=== PATIENT | female | born 1985 | race Caucasian/White ===

== ENCOUNTER 2016-12-30 16:44 | Emergency (ER) | payer MEDICAID ==
[~2016-12-30] VITALS: Ht 162.6 cm; Wt 70.8 kg
[~2016-12-30 16:44] MED LIST: AUGMENTIN 875-1 EACH PO
--- NOTE | 2016-12-30 17:38 | [facility]gent Treatment Center Report ---
History of Present Issue Date/Time Seen by Provider 12/30/16 2704 Visit Reason Pt arrived:Walked Presenting Problem:PT STATES YESTERDAY SHE BEGAN TO HAVE BODY ACHES, COUGH AND HER THROAT WAS RAW. STATES SYMPTOMS CONTINUE TO DAY. Location if Accident: Onset of symptoms date/time:12/29/16/ or onset unknown for:MEDICAL HX UNKNOWN Have you (or family members/close friends) recently traveled outside the [place]? N If Yes, where/when: Have you had exposure to infectious disease within the past month? TB? Other? Specify: c/o body aches, raspy voice and cough starting last night. Still present today. Denies sore throat "just raspy and scratchy feeling". No fever, SOA, wheezing. Hasn't taken or tried anything for symptoms. Spouse w/ strep last week "but doesn't feel like that". Source patient Exam Limitations no limitations ALLERGIES Coded Allergies: No Known Allergies (10/19/15) History Medical History General CAD? No Angina: No PA: No Hypertension? Yes Hyperlipidemia? No CHF? No DVT? No PE? No COPD? No Asthma? No Anemia? No GERD? No Gastric ulcers? No GI Bleed? No Hernia? No Thyroid Problems? No Hypothyroidism? No CVA? No Seizures? No Diabetes? No Renal Insuffiency? No UTI? No Stones? No BPH? No GB Disease: No Nephritic Syndrome? No Asplenia? No Hepatitis? No Sickle Cell Disease? No Arthritis? No Migraines? No Cataracts? No Glaucoma? No MRSA? No HIV? No TB? No Anxiety? No Depression? No Cancer? No More? No Immunization HX DT/Tetanus Unknown Surgical Hx Previous Surgery?Y tubal ligation gallblader laser surgery on cervix [employer] Hx LMP 1-6 Days Ago Social History Smoking Hx Smoker: Current Every Day Smoker Tobacco: Yes Type Cigarettes Alcohol Alcohol: No Review of Systems All Other Systems Reviewed and Negative Constitutional see HPI Eyes denies drainage ENT denies: ear pain, nose discharge, nose congestion, throat swelling. Respiratory see HPI Gastrointestinal denies no symptoms reported Skin denies rash Psychiatric/Neurological denies headache Physical Exam Vital Signs Vital Signs Date Time Temp Pulse Resp B/P Pulse O2 O2 Flow FiO2 Ox Delivery Rate 12/30 1653 98.8 95 20 146/97 99 General Appearance normal appearance, no apparent distress Eye Exam - bilateral eye normal exam Ear, Nose, Throat normal ENT inspection (x/ cobblestoning) Neck non-tender, supple Respiratory Status Yes: trachea midline, chest symmetrical, non productive cough. No: respiratory distress. Lung Sounds anterior: lungs clear. posterior: lungs clear. bilateral: lungs clear. Cardiovascular regular rate/rhythm, no peripheral edema, no murmur Neurologic alert Skin normal color, warm/dry Lymphatic no adenopathy (cervical) Medical Decision Making LABS/Meds/Orders Pt receiving controlled substance in ED? No Results/Orders Laboratory Tests 12/30/16 165: Influenza Type A Ag NOT DETECTED, Influenza Type B Ag NOT DETECTED, Group A Strep Screen NOT DETECTED Orders Procedure Date/time Status UTC STREP SCREEN 12/30 1656 Complete UTC FLU A,B 12/30 1656 Complete Departure Departure Time of Disposition 173 Disposition DC Home or Self Care(routine) Clinical Impression Primary Impression: Viral illness Condition STABLE Referrals CINDY WILKINSON (Family) Follow up IMMEDIATELY for new or worsening symptoms OR no noticeable improvement over the next 48-72 hours. 911 for difficulty breathing. Patient Instructions DI for Viral Upper Respiratory Infection -- Adult Additional Instructions * Monitor temp. Tylenol and/or ibuprofen as needed. ER if fever no less than 101 despite alternating tylenol and ibuprofen * Encourage fluids, water, gatorade, powerade, pedialyte if /toddler/child * warm salt water gargles * warm fluids * sore throat lozenges * sleep elevated * humidifier/vaporizer * your throat swab was sent for culture. Be sure to let your primary care know if you are no better in 2-3 days and he/she can get those results. Discharge Counseling Counseled pt/family regarding diagnosis, test results, medications/RX, home care, follow up needs at [phone]
--- NOTE | 2016-12-30 17:38 | Urgent Treatment Center Report ---
History of Present Issue Date/Time Seen by Provider 12/30/16 2344 Visit Reason Pt arrived:Walked Presenting Problem:PT STATES YESTERDAY SHE BEGAN TO HAVE BODY ACHES, COUGH AND HER THROAT WAS RAW. STATES SYMPTOMS CONTINUE TO DAY. Location if Accident: Onset of symptoms date/time:12/29/16/ or onset unknown for:MEDICAL HX UNKNOWN Have you (or family members/close friends) recently traveled outside the [place]? N If Yes, where/when: Have you had exposure to infectious disease within the past month? TB? Other? Specify: c/o body aches, raspy voice and cough starting last night. Still present today. Denies sore throat "just raspy and scratchy feeling". No fever, SOA, wheezing. Hasn't taken or tried anything for symptoms. Spouse w/ strep last week "but doesn't feel like that". Source patient Exam Limitations no limitations ALLERGIES Coded Allergies: No Known Allergies (10/19/15) History Medical History General CAD? No Angina: No OK: No Hypertension? Yes Hyperlipidemia? No CHF? No DVT? No PE? No COPD? No Asthma? No Anemia? No GERD? No Gastric ulcers? No GI Bleed? No Hernia? No Thyroid Problems? No Hypothyroidism? No CVA? No Seizures? No Diabetes? No Renal Insuffiency? No UTI? No Stones? No BPH? No GB Disease: No Nephritic Syndrome? No Asplenia? No Hepatitis? No Sickle Cell Disease? No Arthritis? No Migraines? No Cataracts? No Glaucoma? No MRSA? No HIV? No TB? No Anxiety? No Depression? No Cancer? No More? No Immunization HX DT/Tetanus Unknown Surgical Hx Previous Surgery?Y tubal ligation gallblader laser surgery on cervix [employer] Hx LMP 1-6 Days Ago Social History Smoking Hx Smoker: Current Every Day Smoker Tobacco: Yes Type Cigarettes Alcohol Alcohol: No Review of Systems All Other Systems Reviewed and Negative Constitutional see HPI Eyes denies drainage ENT denies: ear pain, nose discharge, nose congestion, throat swelling. Respiratory see HPI Gastrointestinal denies no symptoms reported Skin denies rash Psychiatric/Neurological denies headache Physical Exam Vital Signs Vital Signs Date Time Temp Pulse Resp B/P Pulse O2 O2 Flow FiO2 Ox Delivery Rate 12/30 1653 98.8 95 20 146/97 99 General Appearance normal appearance, no apparent distress Eye Exam - bilateral eye normal exam Ear, Nose, Throat normal ENT inspection (x/ cobblestoning) Neck non-tender, supple Respiratory Status Yes: trachea midline, chest symmetrical, non productive cough. No: respiratory distress. Lung Sounds anterior: lungs clear. posterior: lungs clear. bilateral: lungs clear. Cardiovascular regular rate/rhythm, no peripheral edema, no murmur Neurologic alert Skin normal color, warm/dry Lymphatic no adenopathy (cervical) Medical Decision Making LABS/Meds/Orders Pt receiving controlled substance in ED? No Results/Orders Laboratory Tests 12/30/16 165: Influenza Type A Ag NOT DETECTED, Influenza Type B Ag NOT DETECTED, Group A Strep Screen NOT DETECTED Orders Procedure Date/time Status UTC STREP SCREEN 12/30 1656 Complete UTC FLU A,B 12/30 1656 Complete Departure Departure Time of Disposition 173 Disposition DC Home or Self Care(routine) Clinical Impression Primary Impression: Viral illness Condition STABLE Referrals CINDY WILKINSON (Family) Follow up IMMEDIATELY for new or worsening symptoms OR no noticeable improvement over the next 48-72 hours. 911 for difficulty breathing. Patient Instructions DI for Viral Upper Respiratory Infection -- Adult Additional Instructions * Monitor temp. Tylenol and/or ibuprofen as needed. ER if fever no less than 101 despite alternating tylenol and ibuprofen * Encourage fluids, water, gatorade, powerade, pedialyte if /toddler/child * warm salt water gargles * warm fluids * sore throat lozenges * sleep elevated * humidifier/vaporizer * your throat swab was sent for culture. Be sure to let your primary care know if you are no better in 2-3 days and he/she can get those results. Discharge Counseling Counseled pt/family regarding diagnosis, test results, medications/RX, home care, follow up needs at [phone]
[2016-12-30 17:40] LABS: UTC STREP SCREEN NOT DETECTED (NOTDETECTED)
[2016-12-30 17:43] VITALS: BP 146/97
== END 2016-12-30 17:43 | disposition home or self-care (01) ==
LOC: UTC 16:44
PROVIDERS: Nurse Practitioner Family
DX: B34.9 Viral infection, unspecified (principal); I10 Essential (primary) hypertension; Z72.0 Tobacco use